=== PATIENT | male | born 1945 | race Caucasian/White ===

== ENCOUNTER 2021-12-22 08:41 | Day surgery (SDC) | payer OTHER ==
[~2021-12-22] VITALS: Ht 180.3 cm; Wt 84.8 kg
[~2021-12-22 08:41] MED LIST: ATOR40TA PO; CIPR500 PO; CYCL10 PO; Coumadin2 MG PO; Coumadin5 MG PO; ELIQUIS5 MG PO; Esgic Tablet1 EACH PO; GABA600 PO; Glucosamine H1500 MG PO; LISI20 PO; LOPE2C PO; Lovenox100 MG/1 M SQ; METO50 PO; METR500 PO; MSM1000 M1 PO; MSM1500 MG PO; Metoprolol Tart25 MG PO; OXYACE5T PO; PROM25 PO; SERT100 PO; TIMO.5OPSO BOTHEYES; WARF5 PO; XALATAN2.5 ML BOTHEYES; ZOLP10 PO
--- NOTE | 2021-12-22 13:48 | NUR ---
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 MONITOR APPLIED. JANETEN IS AWAKE AND ALERT. NO PAIN NOTED FROM THE PATIENT. DR. BOLDEN AT THE BEDSIDE AND NEW MEDICATION/SCRIPTS NOTED FOR DISCHARGE. CALLED AND WILL RETURN TO THE BEDSIDE SHORTLY. VVS. LUNCH SERVED ADN PATIEN FEEDING SELF WITHOUT USING THE RIGHT HAND/WRIST.
[2021-12-22] MEDS ORDERED: DIGOX125 MC1 PO (13:51)
--- NOTE | 2021-12-22 14:01 | NUR ---
FAXED DIGOXIN SCRIPT TO [facility]
--- NOTE | 2021-12-22 15:36 | NUR ---
REVIEWED DISCHARGE INSTRUCTIONS WITH PATIENT AND . PATIENT UP AND OFF THE MONITOR. PIV REMOVED. CATH TIP INTACT AND PRESSURE DRESSING APPLIED. BELONGINGS GATHERED. PATIENT SIGNED ALL DISCHARGE INSTRUCTIONS AND HAS NO FURTHER QUESTIONS. WHEELCHAIRED OUT FOR DISCHARGE WITH BOOK CANVASSER.
== END 2021-12-22 15:58 | disposition home or self-care (01) ==
LOC: MHTC 08:41
DX: I42.8 Other cardiomyopathies (principal); I48.19 Other persistent atrial fibrillation; I11.9 Hypertensive heart disease without heart failure; E78.5 Hyperlipidemia, unspecified; Z87.891 Personal history of nicotine dependence; Z79.01 Long term (current) use of anticoagulants
CPT/HCPCS: 93458; 99152; 99153; C1769; C1887; C1894; J1644; J2250; J3010; J7030; Q9967

== ENCOUNTER → 2022-04-26 | Outpatient (CLI) | payer OTHER ==
[~2022-04-26] MED LIST changes: +DIGOX125 MC1 PO
[2022-04-27 13:23] LABS: Stool Occult Bld Immuno 1 Negative (NEGATIVE)
== END | disposition home or self-care (01) ==
LOC: LAB SHORT 06:00
PROVIDERS: Family Medicine
DX: Z12.11 Encounter for screening for malignant neoplasm of colon (principal)
CPT/HCPCS: G0328

== ENCOUNTER 2024-11-14 12:26 | Day surgery (SDC) | payer OTHER ==
[~2024-11-14] VITALS: Ht 180.3 cm; Wt 73.0 kg
[~2024-11-14 12:26] MED LIST changes: +Balanced Salt Epinephrine Irrigation Solution 500 mL IR SCH; +Lidocaine HCl/Pf 1% 5 ML VIAL XX SCH; +Moxifloxacin HCL 0.5 MG/0.1 ML 0.4MLSYR RIGHTEYE SCH; +NS 500 ML IV ONE; +PHENYLEPHRINE\\TROPICAMIDE\\TETRACAINE OPHTHALMIC DILATING SOLN RIGHTEYE PRN; +Povidone-Iodine 450 DROP/30 ML Solution ONE; +Povidone-Iodine 450 DROP/30 ML Solution RIGHTEYE SCH; +Tetracaine HCl/Pf 0.5% Opth Soln 4 ml ONE
[2024-11-14] MEDS ORDERED: FARXIGA10 MG PO (13:04)
[2024-11-14] MEDS ORDERED: NS 500 ML IV ONE (13:12)
[2024-11-14] MEDS ORDERED: Midazolam HCl 1MG / ML 2ML Vial ONE (13:38)
[2024-11-14] MEDS ORDERED: FentaNYL Citrate 50 MCG/ML 2 ML Injection ONE (13:41)
--- NOTE | 2024-11-14 13:52 | NUR ---
11/14/24 [id number] Lesli Alexander PT NEEDED VERBAL REMINDERS FROM DR. ESPINOZA WELL DR. HOYT TO KEEP HEAD FROM MOVING, NODDING OR SHACKING NO DURING THE PROCEEDURE. PT VERBALIZED HE UNDERSTOOD, WAS IN SURGERY AND NEEDED TO HOLD STILL. WILL CONTINUE TO MONITOR PT.
[2024-11-14 14:01] VITALS: BP 126/90
== END 2024-11-14 14:18 | disposition home or self-care (01) ==
LOC: ORSCSDS 12:26
PROVIDERS: Student in an Organized Health Care Education/Training Program
PROC: 08RJ3JZ Replacement of Right Lens with Synthetic Substitute, Percutaneous Approach (ICD-10-PCS; principal; 2024-11-14 14:00)
DX: H25.811 Combined forms of age-related cataract, right eye (principal); Z96.1 Presence of intraocular lens; I10 Essential (primary) hypertension; Z79.899 Other long term (current) drug therapy; Z79.01 Long term (current) use of anticoagulants
CPT/HCPCS: J2250; J3010; J7040; V2632